=== PATIENT | male | born 1945 | race American Indian/Alaskan Native ===

== ENCOUNTER 2019-03-26 08:00 | Inpatient (IN) | payer MEDICARE, OTHER ==
[2019-03-26] MEDS ORDERED: ceFAZolin/Water 2 GM/20 ML 2 GM/20 ML SYRINGE IV NR (09:00)
[2019-03-26] MEDS ORDERED: HYDROmorphone 1 MG/1 ML INJ IV PRN ×2 (09:31→13:34)
[2019-03-26] MEDS ORDERED: ONDANSETRON 4 MG/2 ML INJ IV PRN ×2 (09:31→13:34)
--- NOTE | 2019-03-26 09:31 | Anesthesia Day of Surgery ---
Anesthesia Day of Surgery - Day of Surgery Patient Examined: Yes Patient H&P Reviewed: Yes Patient is NPO: Yes
--- NOTE | 2019-03-26 09:31 | Anesthesia Consultation ---
Anesthesia Consult and Med Hx Date of service: 03/26/19 - Airway Anesthetic Teeth Evaluation: Good ROM Head & Neck: Adequate Mental/Hyoid Distance: Adequate Mallampati Class: Class II Intubation Access Assessment: Good - Pulmonary Exam CTA: Yes - Cardiac Exam Cardiac Exam: RRR - Pre-Operative Health Status ASA Pre-Surgery Classification: ASA3 Proposed Anesthetic Plan: General - Cardiovascular System Hx Hypertension: Yes Hx Peripheral Vascular Disease: Yes - Central Nervous System Hx Psychiatric Problems: No - Other Systems Hx Alcohol Use: Yes (Occas) Hx Cancer: Yes
[2019-03-26] MEDS ORDERED: fentaNYL 100 MCG/2 ML INJ IV NR (09:33)
[2019-03-26] MEDS: SODIUM CHLORIDE 0.9% 1000 ML 1,000 ML IV SCH ×2 (09:50→21:56)
[2019-03-26] MEDS ORDERED: MIDAZOLAM 2 MG/2 ML INJ IV NR (10:00)
[2019-03-26] MEDS ORDERED: ROCURONIUM 50 MG/5 ML INJ IV ONE (11:49)
[2019-03-26] MEDS ORDERED: MIDAZOLAM 2 MG/2 ML INJ ONE (11:49)
[2019-03-26] MEDS ORDERED: fentaNYL 250 MCG/5 ML INJ ONE (11:49)
[2019-03-26] MEDS ORDERED: LIDOCAINE MPF (2%) 20 MG/1 ML VIAL 5 ML ONE (11:49)
[2019-03-26] MEDS ORDERED: PROPOFOL 200 MG/20 ML VIAL IV ONE (11:49)
[2019-03-26] MEDS ORDERED: ESMOLOL 100 MG/10 ML INJ IV ONE (12:38)
[2019-03-26] MEDS ORDERED: PHENYLEPHRINE/NS 1,000 MCG/10 ML SYRINGE (OR USE) IV ONE (12:39)
[2019-03-26] MEDS ORDERED: hydrALAZINE 20 MG/1 ML INJ IV PRN (14:00)
[2019-03-26] MEDS ORDERED: DEXTROSE 50% IN WATER (25GM) 50 ML SYRINGE IV PRN (14:01)
--- NOTE | 2019-03-26 14:08 | Post Operative Note ---
Pre-op diagnosis: Left Lower Extremity Critical Limb Ischemia Post-op diagnosis: same Procedure: Left Above the Knee Amputation Anesthesia: GETA Surgeon: WALLY NUNEZ Estimated blood loss: other (25ml) Pathology: list (left lower extremity) Specimen disposition: to lab Condition: stable Disposition: PACU
--- NOTE | 2019-03-26 15:05 | Operative Report ---
SURGEON: Dr. Tim Hernandez. PREOPERATIVE DIAGNOSIS: Left lower extremity critical limb ischemia. POSTOPERATIVE DIAGNOSIS: Left lower extremity critical limb ischemia. PROCEDURE PERFORMED: Left [id number] amputation. COMPLICATIONS: None. ESTIMATED BLOOD LOSS: 25 mL. ANESTHESIA: General. INDICATIONS FOR PROCEDURE: This is a 73-year-old gentleman with diabetes mellitus who has known severe peripheral vascular disease requiring multiple open revascularization attempts for limb salvage that have both failed. The patient now with worsening rest pain and ulcers of the left leg that the patient with no revascularization options and has now decided to undergo a primary amputation. The patient was explained the risks, benefits and alternatives of procedure. He expressed understanding and wished to proceed. DESCRIPTION OF PROCEDURE: The appropriate consent was obtained. The patient was brought back to the operating room and placed on the operating table in supine position. The patient was given appropriate medication and general anesthesia, had an LMA placed without difficulty. The left lower extremity was prepped and draped in the usual sterile fashion with ChloraPrep. Appropriate preoperative antibiotics were administered. Appropriate timeout was performed indicating correct patient, procedure, site of the procedure. We then began the operation by making a fishmouth incision along the distal left thigh. This was carried through the subcutaneous tissue with a combination of blunt dissection and electrocautery. Dissection was continued medially and through the fascia overlying the femoral vessels. These were controlled both proximally and distally with Ml clamps, transected and then suture ligated with a 2-0 silk suture. Once complete, the musculature of the anterior and posterior compartments were then taken down with electrocautery. The sciatic nerve was identified and ligated as proximal as possible with a silk suture prior to being transected. We then took the dissection down to the periosteum, which was incised along the femur with electrocautery and periosteal elevator was then used to take the periosteum proximally along the femur. Once appropriately, we then proceeded to transect the femur with a power saw. The edges were smoothed out with a rasp and then the specimen was then sent off the field and sent to pathology. We then proceeded to irrigate the stump with saline solution. Once we were satisfied with hemostasis along the musculature bed, which was obtained with electrocautery. We then proceeded to close the periosteum around the stump of the femur with a running 2-0 PDS in a pursestring fashion and then the anterior and posterior compartments of the musculature were approximated with interrupted 2-0 PDS. The skin was approximated with kristina. Appropriate dressing was placed. The patient tolerated the procedure well, emerged from the general anesthesia and had LMA removed and was sent to recovery in stable condition. All the sponge, instrument and needle counts were correct at completion of the operation. JOB# [id number] VCN/NTS
--- NOTE | 2019-03-26 16:09 | Post Anesthesia Evaluation ---
- Post Anesthesia Evaluation Patient Participated: Yes Airway Patent: Yes Stable Respiratory Function: Yes Nausea/Vomiting: No Temp > 96.8F: Yes Pain Manageable: Yes Adequeate Hydration: Yes Anesthesia Complications: No
[2019-03-26] MEDS: INSULIN LISPRO 100 UNIT/ML SUB-Q SCH ×2 (16:30→22:45)
[2019-03-26] MEDS: DOCUSATE SODIUM 100 MG CAP PO SCH (21:55)
[2019-03-26] MEDS: ceFAZolin/NS 1 GM/50 ML 1 GM/50 ML BAG IV SCH (22:08)
[2019-03-27] MEDS: VERAPAMIL 80 MG TAB PO SCH ×4 (00:12→22:00)
[2019-03-27] MEDS: ceFAZolin/NS 1 GM/50 ML 1 GM/50 ML BAG IV SCH (05:24)
[2019-03-27 06:08] LABS: Basophils % (Auto) 0.1 % (0.0-1.8); Eosinophils % (Auto) 0.4 % (0.0-4.3); Hematocrit 22.5 % (35.5-45.6); Hemoglobin 7.4 gm/dl (11.8-15.2); Lymphocytes # (Auto) 1.6 K/mm3 (1.2-5.4); Lymphocytes % (Auto) 15.6 % (13.4-35.0); Mean Corpuscular HGB Conc 33 % (32-34); Mean Corpuscular Volume 79 fl (84-94); Monocytes # (Auto) 0.6 K/mm3 (0.0-0.8); Monocytes % (Auto) 6.3 % (0.0-7.3); Platelet Count 449 K/mm3 (140-440); Red Blood Count 2.83 M/mm3 (3.65-5.03); Red Cell Distribution Width 17.2 % (13.2-15.2)
[2019-03-27] MEDS: INSULIN LISPRO 100 UNIT/ML SUB-Q SCH ×4 (07:14→22:02)
[2019-03-27] MEDS: SODIUM CHLORIDE 0.9% 1000 ML 1,000 ML IV SCH (08:46)
[2019-03-27] MEDS: hydroCHLOROthiazide 25 MG TAB PO SCH (10:57)
[2019-03-27] MEDS: LOSARTAN 50 MG TAB PO SCH (10:57)
[2019-03-27] MEDS: TAMSULOSIN 0.4 MG CAP PO SCH (10:57)
[2019-03-27] MEDS: ASPIRIN EC 81 MG TAB PO SCH (10:57)
[2019-03-27] MEDS: DOCUSATE SODIUM 100 MG CAP PO SCH ×2 (10:57→22:00)
[2019-03-27 11:00] LABS: BUN/Creatinine Ratio 15; Blood Urea Nitrogen 16 mg/dL (9-20); Hemolysis Index 78
[2019-03-27] MEDS: BICALUTAMIDE 50 MG TAB PO SCH (11:14)
[2019-03-27] MEDS: ENOXAPARIN 40 MG/0.4 ML INJ SUB-Q SCH (11:50)
[2019-03-27 13:09] LABS: Hematocrit 26.1 % (35.5-45.6); Hemoglobin 8.3 gm/dl (11.8-15.2)
--- NOTE | 2019-03-27 17:09 | Progress Note ---
Subjective Date of service: 03/27/19 Interval history: s/p Left AKA patient doing well stump warm and well perfused dressing clean and dry pain well controlled with current regimen PT evaluated patient today, continue therapy OT to eval and tx will remove dressing CM following, will likely be ready for d/c continue floor care Objective - Constitutional Vitals: Vital Signs - 12hr 03/27/19 03/27/19 03/27/19 05:21 05:25 07:48 Temperature 98.6 F Pulse Rate 80 76 Respiratory 16 Rate Blood Pressure 138/62 Blood Pressure 138/62 [Left] O2 Sat by Pulse 99 100 Oximetry - Labs CBC & Chem 7: 03/27/19 12:52 03/27/19 05:53 Labs: Abnormal lab results 03/26/19 03/27/19 03/27/19 Range/Units 22:41 05:53 05:53 RBC 2.83 L (3.65-5.03) M/mm3 Hgb 7.4 L (11.8-15.2) gm/dl Hct 22.5 L (35.5-45.6) % MCV 79 L (84-94) fl MCH 26 L (28-32) pg RDW 17.2 H (13.2-15.2) % Plt Count 449 H (140-440) K/mm3 Seg Neutrophils % 77.6 H (40.0-70.0) % Seg Neutrophils # 8.0 H (1.8-7.7) K/mm3 Carbon Dioxide 21 L (22-30) mmol/L Glucose 110 H (75-100) mg/dL POC Glucose 202 H (70-105) 03/27/19 Range/Units 12:52 RBC (3.65-5.03) M/mm3 Hgb 8.3 L (11.8-15.2) gm/dl Hct 26.1 L (35.5-45.6) % MCV (84-94) fl MCH (28-32) pg RDW (13.2-15.2) % Plt Count (140-440) K/mm3 Seg Neutrophils % (40.0-70.0) % Seg Neutrophils # (1.8-7.7) K/mm3 Carbon Dioxide (22-30) mmol/L Glucose (75-100) mg/dL POC Glucose (70-105) Medications & Allergies - Medications Allergies/Adverse Reactions: Allergies No Known Allergies Allergy (Unverified 03/21/19 15:46) Home Medications: Home Medications Medication Instructions Recorded Confirmed Last Taken Type B Complex W/Vitamin C [Allbee with 1 each PO QDAY 03/27/19 03/27/19 03/26/19 History C Tab] Leuprolide Aceta (3 Month)(Nf) 22.5 mg IM 03/27/19 12/20/18 History [Lupron (3 Month) (Nf)] Losartan/Hydrochlorothiazide 1 each PO 03/27/19 03/26/19 History [Hyzaar 100-12.5 Tablet] Nitrofurantoin Macrocrystal 100 mg PO 03/27/19 08/22/18 History [Nitrofurantoin] Tramadol HCl [Conzip 25 MG IR + 75 50 mg PO QDAY 03/27/19 03/27/19 03/21/19 History MG XR CAP] 50 oxyCODONE /ACETAMINOPHEN [Percocet 1 tab PO Q6HR PRN 03/27/19 03/27/19 02/02/19 History 5/325] Active Medications: Generic Name Dose Route Start Last Admin Trade Name Freq PRN Reason Stop Dose Admin Aspirin 81 mg 03/27/19 10:00 03/27/19 10:57 Halfprin Ec PO 81 mg QDAY RADHA Administration Atorvastatin Calcium 40 mg 03/26/19 22:00 03/26/19 21:55 Lipitor PO 40 mg QHS RADHA Administration Bicalutamide 50 mg 03/27/19 10:00 03/27/19 11:14 Casodex PO 50 mg QDAY RADHA Administration Dextrose 50 ml 03/26/19 14:01 D50w (25gm) Syringe IV PRN PRN Hypoglycemia Docusate Sodium 100 mg 03/26/19 22:00 03/27/19 10:57 Colace PO 100 mg BID RADHA Administration Enoxaparin Sodium 40 mg 03/27/19 12:00 03/27/19 11:50 Lovenox SUB-Q 40 mg QDAY RADAH Administration Hydralazine HCl 10 mg 03/26/19 14:00 Apresoline IV Q6HR PRN Hypertension Hydrochlorothiazide 25 mg 03/27/19 10:00 03/27/19 10:57 Hctz PO 25 mg QDAY RADHA Administration Hydromorphone HCl 0.5 mg 03/26/19 13:34 Dilaudid IV Q3H PRN Pain , Severe (7-10) Sodium Chloride 1,000 mls @ 100 mls/hr 03/26/19 10:00 03/27/19 08:46 Nacl 0.9% 1000 Ml IV 100 mls/hr DIRECT RADHA Administration Insulin Human Lispro 0 unit 03/26/19 16:30 03/27/19 07:14 Humalog SUB-Q Not Given ACHS [facility] Protocol Losartan Potassium 100 mg 03/27/19 10:00 03/27/19 10:57 Cozaar PO 100 mg QDAY RADHA Administration Ondansetron HCl 4 mg 03/26/19 09:31 Zofran IV ONCE PRN Nausea And Vomiting Ondansetron HCl 4 mg 03/26/19 13:34 Zofran IV Q8H PRN N/V unrelieved by Shelia Oxycodone/Acetaminophen 2 tab 03/26/19 13:34 Percocet 5/325 PO Q4H PRN Pain, Moderate (4-6) Tamsulosin HCl 0.4 mg 03/27/19 10:00 03/27/19 10:57 Flomax PO 0.4 mg QDAY RADHA Administration Verapamil HCl 80 mg 03/26/19 22:00 03/27/19 05:25 Calan PO 80 mg Q8HR RADHA Administration
[2019-03-27] MEDS: oxyCODONE /ACETAMINOPHEN 5-325MG TAB PO PRN (18:32)
[2019-03-28] MEDS: INSULIN LISPRO 100 UNIT/ML SUB-Q SCH ×3 (08:05→16:40)
[2019-03-28] MEDS: LOSARTAN 50 MG TAB PO SCH (11:45)
[2019-03-28] MEDS: hydroCHLOROthiazide 25 MG TAB PO SCH (13:04)
[2019-03-28] MEDS: TAMSULOSIN 0.4 MG CAP PO SCH (13:04)
[2019-03-28] MEDS: VERAPAMIL 80 MG TAB PO SCH ×3 (13:04→21:49)
[2019-03-28] MEDS: BICALUTAMIDE 50 MG TAB PO SCH (13:04)
[2019-03-28] MEDS: ASPIRIN EC 81 MG TAB PO SCH (13:05)
[2019-03-28] MEDS: DOCUSATE SODIUM 100 MG CAP PO SCH ×2 (13:05→21:49)
[2019-03-28] MEDS: ENOXAPARIN 40 MG/0.4 ML INJ SUB-Q SCH (13:05)
[2019-03-28] MEDS: oxyCODONE /ACETAMINOPHEN 5-325MG TAB PO PRN (13:31)
--- NOTE | 2019-03-28 16:10 | Progress Note ---
Assessment and Plan The patient is postoperative day #2 status post left above-knee amputation. He is doing well and his pain has completely resolved. He is in good spirits. His dressing will be changed tomorrow and at that point his incision will be evalu ated and if there are no setbacks he will be discharged to rehab. Subjective Date of service: 03/28/19 Interval history: The patient states his pain is a level 0. He has no complaints. Objective - Constitutional Vitals: Vital Signs - 12hr 03/28/19 03/28/19 03/28/19 04:38 07:27 09:31 Temperature 98.3 F 97.9 F Pulse Rate 80 76 Respiratory 18 18 Rate Blood Pressure 133/64 125/64 O2 Sat by Pulse 99 99 96 Oximetry 03/28/19 03/28/19 03/28/19 11:35 11:45 13:04 Temperature 98.1 F Pulse Rate 94 H 94 H 94 H Respiratory 18 Rate Blood Pressure 117/69 117/69 117/69 O2 Sat by Pulse 100 Oximetry General appearance: Present: no acute distress - Respiratory Respiratory effort: normal Extremities: normal temperature Extremity abnormal: other (Left AKA stump dressing is clean dry and intact) - Labs CBC & Chem 7: 03/27/19 12:52 03/27/19 05:53 Labs: Abnormal lab results 03/27/19 03/27/19 03/27/19 Range/Units 07:27 17:55 20:58 POC Glucose 143 H 196 H 144 H (70-105) 03/28/19 03/28/19 Range/Units 08:03 11:46 POC Glucose 130 H 109 H (70-105) Medications & Allergies - Medications Allergies/Adverse Reactions: Allergies No Known Allergies Allergy (Unverified 03/21/19 15:46) Home Medications: Home Medications Medication Instructions Recorded Confirmed Last Taken Type B Complex W/Vitamin C [Allbee with 1 each PO QDAY 03/27/19 03/27/19 03/26/19 History C Tab] Leuprolide Aceta (3 Month)(Nf) 22.5 mg IM 03/27/19 12/20/18 History [Lupron (3 Month) (Nf)] Losartan/Hydrochlorothiazide 1 each PO 03/27/19 03/26/19 History [Hyzaar 100-12.5 Tablet] Nitrofurantoin Macrocrystal 100 mg PO 03/27/19 08/22/18 History [Nitrofurantoin] Tramadol HCl [Conzip 25 MG IR + 75 50 mg PO QDAY 03/27/19 03/27/19 03/21/19 History MG XR CAP] 50 oxyCODONE /ACETAMINOPHEN [Percocet 1 tab PO Q6HR PRN 03/27/19 03/27/19 02/02/19 History 5/325] Active Medications: Generic Name Dose Route Start Last Admin Trade Name Freq PRN Reason Stop Dose Admin Aspirin 81 mg 03/27/19 10:00 03/28/19 13:05 Halfprin Ec PO 81 mg QDAY RADHA Administration Atorvastatin Calcium 40 mg 03/26/19 22:00 03/27/19 22:01 Lipitor PO 40 mg QHS RADHA Administration Bicalutamide 50 mg 03/27/19 10:00 03/28/19 13:04 Casodex PO 50 mg QDAY RADHA Administration Dextrose 50 ml 03/26/19 14:01 D50w (25gm) Syringe IV PRN PRN Hypoglycemia Docusate Sodium 100 mg 03/26/19 22:00 03/28/19 13:05 Colace PO 100 mg BID RADHA Administration Enoxaparin Sodium 40 mg 03/27/19 12:00 03/28/19 13:05 Lovenox SUB-Q 40 mg QDAY RADHA Administration Hydralazine HCl 10 mg 03/26/19 14:00 Apresoline IV Q6HR PRN Hypertension Hydrochlorothiazide 25 mg 03/27/19 10:00 03/28/19 13:04 Hctz PO 25 mg QDAY RADHA Administration Hydromorphone HCl 0.5 mg 03/26/19 13:34 Dilaudid IV Q3H PRN Pain , Severe (7-10) Sodium Chloride 1,000 mls @ 100 mls/hr 03/26/19 10:00 03/27/19 08:46 Nacl 0.9% 1000 Ml IV 100 mls/hr DIRECT RADHA Administration Insulin Human Lispro 0 unit 03/26/19 16:30 03/28/19 12:55 Humalog SUB-Q Not Given ACHS RADHA Protocol Losartan Potassium 100 mg 03/27/19 10:00 03/28/19 11:45 Cozaar PO 100 mg QDAY RADHA Administration Ondansetron HCl 4 mg 03/26/19 09:31 Zofran IV ONCE PRN Nausea And Vomiting Ondansetron HCl 4 mg 03/26/19 13:34 Zofran IV Q8H PRN N/V unrelieved by Shelia Oxycodone/Acetaminophen 2 tab 03/26/19 13:34 03/28/19 13:31 Percocet 5/325 PO 2 tab Q4H PRN Administration Pain, Moderate (4-6) Tamsulosin HCl 0.4 mg 03/27/19 10:00 03/28/19 13:04 Flomax PO 0.4 mg QDAY RADHA Administration Verapamil HCl 80 mg 03/26/19 22:00 03/28/19 13:04 Calan PO 80 mg Q8HR RADHA Administration
[2019-03-29] MEDS: INSULIN LISPRO 100 UNIT/ML SUB-Q SCH ×4 (00:10→22:05)
[2019-03-29] MEDS: oxyCODONE /ACETAMINOPHEN 5-325MG TAB PO PRN ×2 (05:21→22:11)
[2019-03-29] MEDS: VERAPAMIL 80 MG TAB PO SCH ×3 (05:25→22:04)
[2019-03-29] MEDS: ASPIRIN EC 81 MG TAB PO SCH (09:51)
[2019-03-29] MEDS: hydroCHLOROthiazide 25 MG TAB PO SCH (09:51)
[2019-03-29] MEDS: BICALUTAMIDE 50 MG TAB PO SCH (09:52)
[2019-03-29] MEDS: TAMSULOSIN 0.4 MG CAP PO SCH (09:52)
[2019-03-29] MEDS: DOCUSATE SODIUM 100 MG CAP PO SCH ×2 (09:52→22:04)
[2019-03-29] MEDS: LOSARTAN 50 MG TAB PO SCH (09:52)
[2019-03-29] MEDS: ENOXAPARIN 40 MG/0.4 ML INJ SUB-Q SCH (09:53)
--- NOTE | 2019-03-29 10:42 | Progress Note ---
Subjective Date of service: 03/29/19 Interval history: s/p left AKA patient doing well stump warm and well perfused incision c/d/i with kristina continue PT/OT patient ok to d/c in the AM Objective - Constitutional Vitals: Vital Signs - 12hr 03/28/19 03/29/19 03/29/19 23:59 05:15 05:31 Temperature 97.7 F 98.1 F 97.8 F Pulse Rate 81 90 84 Respiratory 19 18 18 Rate Blood Pressure 113/59 Blood Pressure 130/56 115/83 [Left] O2 Sat by Pulse 99 100 98 Oximetry 03/29/19 03/29/19 03/29/19 07:27 09:52 10:00 Temperature 98.1 F Pulse Rate 80 80 Respiratory 18 Rate Blood Pressure 111/58 Blood Pressure 111/58 [Left] O2 Sat by Pulse 97 100 Oximetry - Labs CBC & Chem 7: 03/27/19 12:52 03/27/19 05:53 Labs: Abnormal lab results 03/28/19 03/28/19 03/28/19 Range/Units 11:46 16:28 21:20 POC Glucose 109 H 139 H 157 H (70-105) 03/29/19 Range/Units 07:14 POC Glucose 142 H (70-105) Medications & Allergies - Medications Allergies/Adverse Reactions: Allergies No Known Allergies Allergy (Unverified 03/21/19 15:46) Home Medications: Home Medications Medication Instructions Recorded Confirmed Last Taken Type B Complex W/Vitamin C [Allbee with 1 each PO QDAY 03/27/19 03/27/19 03/26/19 History C] Leuprolide Aceta (3 Month)(Nf) 22.5 mg IM 03/27/19 12/20/18 History [Lupron (3 Month) (Nf)] Losartan/Hydrochlorothiazide 1 each PO 03/27/19 03/26/19 History [Hyzaar 100-12.5 Tablet] Nitrofurantoin Macrocrystal 100 mg PO 03/27/19 08/22/18 History [Nitrofurantoin] Aspirin EC [Halfprin EC] 81 mg PO QDAY tablet 03/29/19 Unknown Rx AtorvaSTATin [Lipitor] 40 mg PO QHS tablet 03/29/19 Unknown Rx Bicalutamide [Casodex] 50 mg PO QDAY tablet 03/29/19 Unknown Rx Docusate Sodium [Colace CAP] 100 mg PO BID #60 capsule 03/29/19 Unknown Rx Tamsulosin [Flomax] 0.4 mg PO QDAY capsule 03/29/19 Unknown Rx Verapamil [Calan] 80 mg PO Q8HR tablet 03/29/19 Unknown Rx oxyCODONE /ACETAMINOPHEN [Percocet 2 tab PO Q4H PRN #20 tablet 03/29/19 Unknown Rx 5/325 mg] Active Medications: Generic Name Dose Route Start Last Admin Trade Name Freq PRN Reason Stop Dose Admin Aspirin 81 mg 03/27/19 10:00 03/29/19 09:51 Halfprin Ec PO 81 mg QDAY RADHA Administration Atorvastatin Calcium 40 mg 03/26/19 22:00 03/28/19 21:49 Lipitor PO 40 mg QHS RADHA Administration Bicalutamide 50 mg 03/27/19 10:00 03/29/19 09:52 Casodex PO 50 mg QDAY RADHA Administration Dextrose 50 ml 03/26/19 14:01 D50w (25gm) Syringe IV PRN PRN Hypoglycemia Docusate Sodium 100 mg 03/26/19 22:00 03/29/19 09:52 Colace PO 100 mg BID RADHA Administration Enoxaparin Sodium 40 mg 03/27/19 12:00 03/29/19 09:53 Lovenox SUB-Q 40 mg QDAY RADHA Administration Hydralazine HCl 10 mg 03/26/19 14:00 Apresoline IV Q6HR PRN Hypertension Hydrochlorothiazide 25 mg 03/27/19 10:00 03/29/19 09:51 Hctz PO 25 mg QDAY RADHA Administration Hydromorphone HCl 0.5 mg 03/26/19 13:34 Dilaudid IV Q3H PRN Pain , Severe (7-10) Sodium Chloride 1,000 mls @ 100 mls/hr 03/26/19 10:00 03/27/19 08:46 Nacl 0.9% 1000 Ml IV 100 mls/hr DIRECT RADHA Administration Insulin Human Lispro 0 unit 03/26/19 16:30 03/29/19 07:38 Humalog SUB-Q Not Given ACHS [facility] Protocol Losartan Potassium 100 mg 03/27/19 10:00 03/29/19 09:52 Cozaar PO 100 mg QDAY RADHA Administration Ondansetron HCl 4 mg 03/26/19 09:31 Zofran IV ONCE PRN Nausea And Vomiting Ondansetron HCl 4 mg 03/26/19 13:34 Zofran IV Q8H PRN N/V unrelieved by Shelia Oxycodone/Acetaminophen 2 tab 03/26/19 13:34 03/29/19 05:21 Percocet 5/325 PO 2 tab Q4H PRN Administration Pain, Moderate (4-6) Tamsulosin HCl 0.4 mg 03/27/19 10:00 03/29/19 09:52 Flomax PO 0.4 mg QDAY RADHA Administration Verapamil HCl 80 mg 03/26/19 22:00 03/29/19 05:25 Calan PO 80 mg Q8HR RADHA Administration
--- NOTE | 2019-03-29 10:46 | Discharge Summary ---
Providers - Providers Date of Admission: 03/26/19 08:43 Date of discharge: 03/30/19 Attending physician: WALLY NUNEZ MD 03/26/19 Consult to Case Management [CONS] Routine Services Needed at Discharge: Pricing Intern Notified:: cm notified Occupational Therapy Evaluate and Treat [CONS] Routine Comment: Reason For Exam: s/p amputation Physical Therapy Evaluation and Treat [CONS] Routine Comment: Reason For Exam: s/p amputation 03/26/19 13:34 Consult Acute Rehabilitation [CONS] Routine Consulting Provider: MARY LONGO Physician Instructions: Reason For Exam: eval for acute rehab Primary care physician: PARAMJIT GONG Hospitalization Condition: Stable Procedures: Left Above the Knee Amputation Hospital course: the patient was taken to the operating room for planned left AKA. please refer to the operative note concerning details of the procedure. the patient tolerated the procedure well and was admitted to the floor for routine post-op care. the patient's post-op course was unremarkable. the patient was evaluated and treated by physical and occupational therapy. at the time of discharge, the patient was tolerating a regular diet, pain controlled with oral meds and working with with physical therapy with assistance. Disposition: [id number] SNF [facility] - Discharge Diagnoses (1) Atherosclerosis of arteries Status: Acute (2) Diabetes Status: Acute Qualifiers: Diabetes mellitus type: type 2 Core Measure Documentation - Palliative Care Palliative Care/ Comfort Measures: Not Applicable - Core Measures Any of the following diagnoses?: none - VTE Discharge Requirements Deep Vein Thrombosis/Pulmonary Embolism Present on Admission: No Has pt received <5 days of overlap therapy or INR<2.0: No Anticoagulant overlap therapy prescribed at discharge: No Contraindication No Overlap Therapy order at DC: Not Indicated - Acute [place] Discharge Requirements NENA/ARB for LVSD if EF <40%: Not Applicable Beta shaun at discharge: No Reason for no beta shaun on DC: Bradycardia Statin for LDL = or >100 mg/dl on DC: Yes Exam - Constitutional Vitals: Temp Pulse Resp BP Pulse Ox 98.1 F 80 18 111/58 100 03/29/19 07:27 03/29/19 09:52 03/29/19 07:27 03/29/19 09:52 03/29/19 10:00 General appearance: Present: no acute distress - EENT Eyes: Present: PERRL - Neck Neck: Present: normal ROM - Respiratory Respiratory effort: normal Respiratory: bilateral: CTA - Cardiovascular Rhythm: regular - Extremities Extremities: no ischemia - Musculoskeletal Musculoskeletal: other (Left AKA) - Neurologic Neurologic: CNII-XII intact Plan Activity: up only with assistance, fall precautions Weight Bearing Status: Weight Bear as Tolerated Diet: diabetic Wound: open to air Durable Medical Equipment Needed Upon Discharge: Wheelchair, Bedside Commode, Hospital Bed Follow up with: PARAMJIT GONG MD [Primary Care Provider] - 7 Days WALLY NUNEZ MD [Staff Physician] - 04/17/19 10:30 am Prescriptions: Docusate Sodium [Colace CAP] 100 mg PO BID #60 capsule oxyCODONE /ACETAMINOPHEN [Percocet 5/325 mg] 2 tab PO Q4H PRN #20 tablet PRN Reason: Pain, Moderate (4-6)
[2019-03-30] MEDS: VERAPAMIL 80 MG TAB PO SCH (06:37)
[2019-03-30 08:17] VITALS: BP 127/54
[2019-03-30] MEDS: oxyCODONE /ACETAMINOPHEN 5-325MG TAB PO PRN (08:23)
[2019-03-30] MEDS: ENOXAPARIN 40 MG/0.4 ML INJ SUB-Q SCH (09:12)
[2019-03-30] MEDS: ASPIRIN EC 81 MG TAB PO SCH (09:12)
[2019-03-30] MEDS: LOSARTAN 50 MG TAB PO SCH (09:12)
[2019-03-30] MEDS: hydroCHLOROthiazide 25 MG TAB PO SCH (09:12)
[2019-03-30] MEDS: BICALUTAMIDE 50 MG TAB PO SCH (09:13)
[2019-03-30] MEDS: DOCUSATE SODIUM 100 MG CAP PO SCH (09:13)
[2019-03-30] MEDS: TAMSULOSIN 0.4 MG CAP PO SCH (09:13)
== END 2019-03-30 10:15 | DRG 240 ==
LOC: 3A 08:43 → 3B-SURG 13:54
PROVIDERS: ADMIT Surgery Vascular Surgery; ATTEND Surgery Vascular Surgery
PROC: 0Y6D0Z3 Detachment at Left Upper Leg, Low, Open Approach (ICD-10-PCS; principal; 2019-03-26)
DX: E11.51 Type 2 diabetes mellitus with diabetic peripheral angiopathy without gangrene (principal); L97.228 Non-pressure chronic ulcer of left calf with other specified severity; I70.242 Atherosclerosis of native arteries of left leg with ulceration of calf; I10 Essential (primary) hypertension; I99.8 Other disorder of circulatory system; E11.69 Type 2 diabetes mellitus with other specified complication; Z79.82 Long term (current) use of aspirin; Z79.899 Other long term (current) drug therapy; Z79.84 Long term (current) use of oral hypoglycemic drugs; Z83.3 Family history of diabetes mellitus; Z82.49 Family history of ischemic heart disease and other diseases of the circulatory system; Z84.89 Family history of other specified conditions; Z95.828 Presence of other vascular implants and grafts
CPT/HCPCS: 36415; 80048; 82962; 85014; 85018; 85025; 88307; 88311; 94760; G0378; A9270-GY; J0690; J1650; J1815; J2250; J2370; J2704; J3010; J7030; J9999